=== PATIENT | female | born 1980 | race African-American/Black ===

== ENCOUNTER 2020-08-09 10:05 | Emergency (ER) | payer BC ==
[2020-08-09 10:17] VITALS: TEMP 98; BMI 20.7
[2020-08-09 12:04] LABS: HEMATOCRIT 39.5 % (32.4-45.2); HEMOGLOBIN 13.6 GM/dL (10.7-15.3); MCH 33.2 pg (25.7-33.7); MCHC 34.4 g/dl (32.0-36.0); MEAN CELL VOLUME 96.4 fl (80-96); MEAN PLT VOLUME 9.3 fl (7.5-11.1); PLATELET COUNT 262 K/MM3 (134-434); RDW 13.3 % (11.6-15.6); WHITE BLOOD COUNT 4.7 K/mm3 (4.0-10.0)
[2020-08-09 12:33] LABS: ALBUMIN 4.1 g/dl (3.4-5.0); BILIRUBIN,TOTAL 1.2 mg/dL (0.2-1); BLOOD UREA NITROGEN 9.9 mg/dL (7-18); CREATININE 0.8 mg/dL (0.55-1.3); POTASSIUM 3.9 mmol/L (3.5-5.1); TOT PROT 8.1 g/dl (6.4-8.2)
[2020-08-09 13:18] LABS: URINE APPEARANCE CLEAR; URINE BILIRUBIN NEGATIVE (NEGATIVE); URINE COLOR YELLOW; URINE GLUCOSE (UA) NEGATIVE (NEGATIVE); URINE KETONE NEGATIVE (NEGATIVE); URINE LEUK ESTERASE NEGATIVE (NEGATIVE); URINE NITRITE NEGATIVE (NEGATIVE); URINE PROTEIN NEGATIVE (NEGATIVE); URINE UROBILINOGEN 0.2 mg/dL (0.2-1.0)
[2020-08-09 13:21] LABS: HCG,QUALITATIVE URINE Negative
--- NOTE | 2020-08-09 13:21 | PDOC ---
History of Present Illness - General Chief Complaint: Chest Pain Stated Complaint: CHEST DISCOMFORT Time Seen by Provider: 08/09/20 12:18 History Source: Patient Exam Limitations: No Limitations - History of Present Illness Initial Comments: 08/09/20 13:17 40-year-old female history of hyperlipidemia started simvastatin 20 mg daily this week presents complaining of mild right-sided chest pain since 4 AM today. Reports feeling tenderness to right upper quadrant of breast. Traveled via car to [place] July 25, returned August 01 via 1 hour flight. States minimal right calf pain. Denies shortness of breath, palpitations, dizziness nausea, vomiting, diarrhea, abdominal pain, back pain, trauma, urinary symptoms or any other complaint. Reports normal stress test March 2020. Has cardiology follow-up scheduled for September 2020. Denies tobacco, alcohol or illicit substance abuse. ROS: as above PE: GENERAL: well-appearing, NAD HEAD: NCAT EYES: Pupils equal, round and reactive to light, sclera anicteric, conjunctiva clear ENT: pharynx: no erythema, no exudate, uvula midline NECK: supple CHEST: Right breast: tender, mobile, pea-sized palpable nodule to right upper quadrant, no warmth or erythema noted, no nipple dimpling or discharge noted RESP: clear, no w/r/r CARDIO: rrr, no m/g/r ABD: +BS, soft, nontender, non distended BACK: no midline spinal ttp, no CVAT EXTREMITIES: Normal range of motion, no edema NEUROLOGICAL: Normal speech, normal gait SKIN: Warm, Dry Is this a multiple visit Asthma Patient?: No Past History - Medical History Allergies/Adverse Reactions: Allergies Allergy/AdvReac Type Severity Reaction Status Date / Time loratadine Allergy Verified 06/15/13 23:57 Home Medications: Ambulatory Orders No Home Medications 0 dose .ROUTE UTDICT 04/25/13 COPD: No - Surgical History Gastric Stapling: No Neurologic Surgery: No - Reproductive History Is Patient Now?: No - Immunization History Immunization Up to Date: No - Psycho-Social/Smoking History Smoking Status: No Smoking History: Never smoked Have you smoked in the past 12 months: No Number of Cigarettes Smoked Daily: 0 Information on smoking cessation initiated: No - Substance Abuse Hx (Audit-C & DAST Scrn) How often the patient has a drink containing alcohol: Never Score: In Men: 4 or > Positive; In Women: 3 or > Positive: 0 Screen Result (Pos requires Nsg. Audit-10AR): Negative In the last yr the pt used illegal drug/Rx for NonMed reason: No Score: Yes response is considered Positive: 0 Screen Result (Positive result requires Nsg. DAST-10): Negative *Physical Exam - Vital Signs Last Vital Signs Temp Pulse Resp BP Pulse Ox 98 F 73 16 95/70 97 08/09/20 10:14 08/09/20 10:14 08/09/20 10:14 08/09/20 10:14 08/09/20 10:14 ED Treatment Course - LABORATORY CBC & Chemistry Diagram: 08/09/20 10:50 08/09/20 10:50 - ADDITIONAL ORDERS Additional order review: Laboratory Results 08/09/20 08/09/20 10:50 10:50 D-Dimer < 215 Sodium 139 Potassium 3.9 Chloride 105 Carbon Dioxide 28 Anion Gap 6 L BUN 9.9 Creatinine 0.8 Est GFR (CKD-EPI)AfAm 106.13 Est GFR (CKD-EPI)NonAf 91.57 Random Glucose 78 Calcium 9.0 Total Bilirubin 1.2 H AST 17 ALT 18 Alkaline Phosphatase 44 L Creatine Kinase 70 Troponin I 0.02 Total Protein 8.1 Albumin 4.1 08/09/20 10:50 RBC 4.10 MCV 96.4 H MCHC 34.4 RDW 13.3 MPV 9.3 Medical Decision Making - Medical Decision Making 08/09/20 13:52 40-year-old female history of hyperlipidemia started simvastatin 20 mg daily this week presents complaining of mild right-sided chest pain since 4 AM today. Reports feeling tenderness to right upper quadrant of breast. Traveled via car to [place] July 25, returned August 01 via 1 hour flight. States minimal right calf pain. Denies shortness of breath, palpitations, dizziness nausea, vomiting, diarrhea, abdominal pain, back pain, trauma, urinary symptoms or any other complaint. Reports normal stress test March 2020. Has cardiology follow-up scheduled for September 2020. Denies tobacco, alcohol or illicit substance abuse. Reviewed labs including troponin and d-dimer Discussed lab results with patient Patient declined acetaminophen or any other analgesic for chest discomfort today ecg: HR 60, nsr. no st or tw changes cxr: No acute findings Advised patient to follow-up with PMD Return precautions discussed 08/09/20 13:54 Discharge - Discharge Information Problems reviewed: Yes Clinical Impression/Diagnosis: Atypical chest pain Condition: Stable Disposition: HOME - Admission No - Follow up/Referral Referrals: Vivek Banks MD [Primary Care Provider] - - Patient Discharge Instructions Additional Instructions: Follow-up with your primary care physician within 1 week If symptoms worsen return to ED - Post Discharge Activity
[2020-08-09 13:51] VITALS: BP 118/64; PULSE 66
--- NOTE | 2020-08-10 09:51 | EKG ---
Test Reason : Blood Pressure : / mmHG Vent. Rate : 060 BPM Atrial Rate : 060 BPM P-R Int : 126 ms QRS Dur : 094 ms QT Int : 428 ms P-R-T Axes : 040 018 032 degrees QTc Int : 428 ms NORMAL SINUS RHYTHM POSSIBLE LEFT ATRIAL ENLARGEMENT SEPTAL INFARCT , AGE UNDETERMINED ABNORMAL ECG WHEN COMPARED WITH ECG OF 16-JUN-2013 00:10, NO SIGNIFICANT CHANGE WAS FOUND Confirmed by SAEID ANNA MD ([id number]) on 08/10/2020 9:51:20 AM Referred By: Confirmed By:SAEID ANNA MD
== END 2020-08-09 13:56 | disposition home or self-care (01) ==
LOC: JER 10:05
DX: R07.89 Other chest pain (principal)
CPT/HCPCS: 36415; 71046-TC-FY; 80053; 81003; 82550; 84484; 84703; 85027; 85379; 93005; 93010; 99285-25

== ENCOUNTER 2024-08-09 13:12 | Emergency (ER) | payer BC ==
[2024-08-09 13:18] VITALS: BP 114/75; PULSE 70; RESP 18; TEMP 97.4; BMI 22.1
== END 2024-08-09 14:30 | disposition home or self-care (01) ==
LOC: JERFT 13:12
DX: S09.90XA Unspecified injury of head, initial encounter (principal); W01.198A Fall on same level from slipping, tripping and stumbling with subsequent striking against other object, initial encounter
CPT/HCPCS: 99283-25